=== PATIENT | male | born 1960 | race Caucasian/White ===

== ENCOUNTER 2019-12-16 08:00 | Outpatient (CLI) | payer OTHER ==
--- NOTE | 2019-12-16 09:05 | MRI ---
MRI cervical spine noncontrast: 12/16/2019 HISTORY: 59-year-old male with left cervical radiculopathy M 54.12 COMPARISON: None FINDINGS: Vertebral body heights are maintained. Cervical spinal cord is normal in size and signal. Normal bone marrow signal. Mild disc space narrowing at C5-6 and C6-7. Rest of the disc spaces are maintained. Moderate bilateral facet DJD at C7-T1. No facet DJD at any other level. C1-2: No high-grade central stenosis. C2-3: Essentially normal. C3-4: Small focal central-right paracentral disc herniation indents the ventral aspect of spinal cord slightly to the right of midline. Mild central spinal canal stenosis. Small bilateral uncinate process osteophytes. No high-grade neural foraminal stenosis. C4-5: No high-grade central or high-grade neural foraminal stenosis. C5-6: Minimal retrolisthesis of C5 on C6, plus broad-based disc-osteophytic shallow complex abuts the ventral surface of the spinal cord. Moderate central spinal canal stenosis. Moderate size bilateral uncinate process osteophytes cause very severe right neural foraminal stenosis and severe l eft neural foraminal stenosis. C6-7: Broad-based shallow disc-osteophyte complex indents the ventral aspect of thecal sac but does n ot contact spinal cord. Thickened ligamentum flavum encroaches upon posterior aspect of spinal canal. Moderate central spinal canal stenosis. Small right uncinate process osteophytes cause moderat e right neural foraminal stenosis. Moderate-sized left uncinate process osteophytes cause very severe left neural foraminal stenosis. C7-T1: Tiny right paracentral disc-osteophyte complex. No central spinal canal stenosis. Moderate ginger ateral neural foraminal stenosis. IMPRESSION: 1.) Mild cervical spondylosis, including low-grade degenerative disc disease at C5-6 and C6-7, and mo derate bilateral facet osteoarthrosis at C7-T1. 2) severe and very severe neural foraminal stenosis, on the left at C6-7, and bilaterally at C5-6. 3) small right paracentral focal disc herniation at C3-4 indenting the spinal cord.
== END 2019-12-16 08:01 | disposition home or self-care (01) ==
LOC: SCSMRI 08:00
PROVIDERS: ATTEND Orthopaedic Surgery
DX: M47.22 Other spondylosis with radiculopathy, cervical region (principal); M25.512 Pain in left shoulder; M50.11 Cervical disc disorder with radiculopathy, high cervical region; M47.23 Other spondylosis with radiculopathy, cervicothoracic region; M48.02 Spinal stenosis, cervical region
CPT/HCPCS: 72141

== ENCOUNTER 2021-11-02 07:37 | Outpatient (CLI) | payer BC | END 2021-11-02 07:38 | disposition home or self-care (01) | LOC: SCSMRI 07:37 | PROVIDERS: ATTEND Orthopaedic Surgery | DX: M75.42 Impingement syndrome of left shoulder (principal); M75.122 Complete rotator cuff tear or rupture of left shoulder, not specified as traumatic ==

== ENCOUNTER 2021-11-07 09:04 | Outpatient (CLI) | payer BC ==
[2021-11-07 10:48] LABS: #Eosinphils 0.1 10x3/uL (0.0-0.5); #Monocytes 0.5 10x3/uL (0.0-1.1); #Neutrophils 2.4 10x3/uL (1.5-8.4); %Basophils 0.2 % (0.0-2.0); %Eosinophils 2.2 % (0.0-6.0); %Lymphocytes 40.3 % (18.0-47.0); %Neutrophils 48.1 % (40.0-75.0); Hemoglobin 14.5 g/dL (13.5-17.5); Mean Corpuscular Hemoglobin 32.3 pg (27.0-33.0); Platelet Count 253 10x3/uL (150-450); RBC Distribution Width 12.3 % (11.5-14.5); Red Blood Cell (RBC) Count 4.49 10x6/uL (4.32-5.72)
[2021-11-07 11:09] LABS: Anion Gap 16 mmol/L (10-20); BUN (Urea Nitrogen) 12 mg/dL (8.4-25.7); Calc. Creatinine Clearance 0 mL/min (70-130); Calcium 9.6 mg/dL (7.8-10.44); Carbon Dioxide 25 mmol/L (23-31); Chloride 101 mmol/L (98-107); Glucose 186 mg/dL (80-115); Potassium 4.7 mmol/L (3.5-5.1); Sodium 137 mmol/L (136-145)
[2021-11-07 22:45] LABS: SARS-CoV-2 PCR by NAA Not Detected (NotDetected)
== END 2021-11-07 09:05 | disposition home or self-care (01) ==
LOC: LABBT 09:04
PROVIDERS: ATTEND Orthopaedic Surgery
DX: Z01.818 Encounter for other preprocedural examination (principal); M75.102 Unspecified rotator cuff tear or rupture of left shoulder, not specified as traumatic; Z20.822 Contact with and (suspected) exposure to COVID-19
CPT/HCPCS: 71046; 80048; 85025; 93005; 93010; U0003; U0005

== ENCOUNTER 2021-11-13 11:56 | Outpatient (CLI) | payer BC ==
[2021-11-13 20:00] LABS: SARS-CoV-2 PCR by NAA Not Detected (NotDetected)
== END 2021-11-13 11:57 | disposition home or self-care (01) ==
LOC: LABBT 11:56
PROVIDERS: ATTEND Orthopaedic Surgery
DX: Z20.822 Contact with and (suspected) exposure to COVID-19 (principal)
CPT/HCPCS: U0003; U0005

== ENCOUNTER 2021-11-15 09:01 | Day surgery (SDC) | payer BC ==
[2021-11-08 10:15] VITALS: BMI 25.8
[2021-11-15] MEDS ORDERED: Tranexamic Acid 1,000 MG/10 ML VIAL ONE (09:44)
[2021-11-15] MEDS ORDERED: Sodium Chloride 0.9% 100 ML ONE (09:44)
[2021-11-15] MEDS ORDERED: Lidocaine 1% MPF 2 ML VIAL ONE (09:54)
[2021-11-15] MEDS ORDERED: Midazolam HCl 2 mg/2 ml Vial ONE (10:07)
[2021-11-15] MEDS ORDERED: Fentanyl 100 MCG/2 ML VIAL ONE (10:07)
[2021-11-15] MEDS ORDERED: Fentanyl 100 MCG/2 ML VIAL IV PRN (10:20)
[2021-11-15] MEDS ORDERED: HYDROcodone/Acetaminophen 10/325 mg Tablet PO PRN (10:30)
[2021-11-15] MEDS ORDERED: Ropivacaine 0.2% 550 ML 550 ML NERVE BLCK SCH (10:30)
[2021-11-15] MEDS ORDERED: traMADol HCl 50 MG TAB PO PRN ×2 (10:30)
[2021-11-15] MEDS ORDERED: Ketorolac Tromethamine 30 MG/ML VIAL IVP PRN (10:30)
[2021-11-15] MEDS ORDERED: Promethazine HCl 25 MG/ML VIAL IM PRN (10:30)
[2021-11-15] MEDS ORDERED: Zolpidem Tartrate 5 MG TAB PO PRN (10:30)
[2021-11-15] MEDS ORDERED: Ondansetron PF 4 MG/2 ML Vial IVP PRN (10:30)
[2021-11-15] MEDS ORDERED: fentaNYL Citrate/PF 100 MCG/2 ML SYRINGE ONE (10:49)
[2021-11-15] MEDS ORDERED: Vancomycin 1 GM/200 ML BAG ONE (10:59)
[2021-11-15] MEDS ORDERED: ceFAZolin (BATCH) 2 GM/100 ML BAG ONE (10:59)
[2021-11-15] MEDS ORDERED: PHENYLEPHRINE-NS 100 MCG/ML 10 ML SYRINGE ONE (11:27)
[2021-11-15] MEDS ORDERED: Rocuronium Bromide 10 MG/ML (10ML VIAL) ONE (11:27)
[2021-11-15] MEDS ORDERED: Glycopyrrolate 0.2 MG/ML 5 ML SYRINGE ONE (11:27)
[2021-11-15] MEDS ORDERED: Ondansetron PF 4 MG/2 ML Vial ONE (11:27)
[2021-11-15] MEDS ORDERED: Ropivacaine 0.5% HCl/PF (150 MG/30 ML VIAL) ONE (11:27)
[2021-11-15] MEDS ORDERED: Ketorolac Tromethamine 30 MG/ML VIAL ONE (11:27)
[2021-11-15] MEDS ORDERED: Lidocaine 1% PF 5 ML VIAL ONE (11:27)
[2021-11-15] MEDS ORDERED: PROPOFOL 200 MG/20 ML VIAL ONE (11:27)
== END 2021-11-15 15:32 | disposition home or self-care (01) ==
LOC: SDC 09:01
PROVIDERS: ATTEND Orthopaedic Surgery
PROC: 0LS40ZZ Reposition Left Upper Arm Tendon, Open Approach (ICD-10-PCS; principal; 2021-11-15)
PROC: 3E0T3BZ Introduction of Anesthetic Agent into Peripheral Nerves and Plexi, Percutaneous Approach (ICD-10-PCS; principal; 2021-11-15)
PROC: 0RHK04Z Insertion of Internal Fixation Device into Left Shoulder Joint, Open Approach (ICD-10-PCS; principal; 2021-11-15)
PROC: 0RNK0ZZ Release Left Shoulder Joint, Open Approach (ICD-10-PCS; principal; 2021-11-15)
PROC: 0LM20ZZ Reattachment of Left Shoulder Tendon, Open Approach (ICD-10-PCS; principal; 2021-11-15)
DX: M75.122 Complete rotator cuff tear or rupture of left shoulder, not specified as traumatic (principal); M75.42 Impingement syndrome of left shoulder; S46.212A Strain of muscle, fascia and tendon of other parts of biceps, left arm, initial encounter; M25.312 Other instability, left shoulder; M75.02 Adhesive capsulitis of left shoulder; F17.290 Nicotine dependence, other tobacco product, uncomplicated; Z79.84 Long term (current) use of oral hypoglycemic drugs; Z79.890 Hormone replacement therapy; Z79.899 Other long term (current) drug therapy; Z98.1 Arthrodesis status
CPT/HCPCS: A4306; C1713; J0690; J1885; J2250; J2405; J2704; J2795; J3010; J3370; J3490

== ENCOUNTER 2025-05-31 14:40 | Outpatient (CLI) | payer MEDICARE | END 2025-05-31 14:41 | disposition home or self-care (01) | LOC: SCSRAD 14:40 | PROVIDERS: ATTEND Family Medicine | DX: M79.671 Pain in right foot (principal) ==